=== PATIENT | female | born 1950 | race Caucasian/White ===

== ENCOUNTER → 2017-03-06 | Outpatient (CLI) | payer MEDICARE | END | disposition home or self-care (01) | LOC: CDC 10:15 | DX: M25.562 Pain in left knee (principal); Z96.652 Presence of left artificial knee joint | CPT/HCPCS: 93000 ==

== ENCOUNTER 2018-01-04 22:01 | Inpatient (IN) | payer OTHER, MEDICARE ==
[~2018-01-04] VITALS: Ht 162.6 cm; Wt 74.4 kg
[~2018-01-04 22:01] MED LIST: IRON325 M1 PO; MAGNESIUM400 M1 PO; PRAVACHOL20 MG PO; VITAMIN D-3 401 EACH PO; ZANTAC150 MG PO
[2018-01-05 06:57] VITALS: BP 136/64
[2018-01-05 13:23] VITALS: BP 132/60
[2018-01-05 15:57] VITALS: BP 121/61
[2018-01-05 19:54] VITALS: BP 123/56
[2018-01-06] VITALS (7 sets, daily range): BP systolic 108–135; BP diastolic 55–70
[2018-01-06 05:51] LABS: HEMATOCRIT 36.6 % (36.0-46.0); HEMOGLOBIN 11.8 G/DL (11.9-15.5); MCV 88.6 FL (83-99)
[2018-01-06 06:14] LABS: CHLORIDE 106 MEQ/L (99-109); CREATININE 0.7 MG/DL (0.6-1.3); GFR ESTIMATE (CALCULATED) > 59 mL/min/; GLUCOSE 137 mg/dL (70-99); POTASSIUM 4.5 MEQ/L (3.7-5.4); SODIUM 140 MEQ/L (136-147); UREA NITROGEN (BUN) 11 mg/dL (9-23)
[2018-01-07 04:20] VITALS: BP 96/54
[2018-01-07 06:01] LABS: HEMOGLOBIN 10.9 G/DL (11.9-15.5)
[2018-01-07 08:11] VITALS: BP 134/63
[2018-01-07] MEDS ORDERED: BENADRYL25 MG PO (09:16)
[2018-01-07] MEDS ORDERED: BISACODYL5 MG PO (09:18)
[2018-01-07] MEDS ORDERED: HYDROCODON-ACE1 EAC7 PO (09:19)
[2018-01-07] MEDS ORDERED: CELECOXIB200 MG PO (09:19)
[2018-01-07] MEDS ORDERED: ELIQUIS2.5 MG PO (09:19)
[2018-01-07 12:21] VITALS: BP 133/63
== END 2018-01-07 13:46 | DRG 470 ==
LOC: ENRESERV 22:01 → 2SOUTH 01-05 06:30 → 3WEST 01-05 13:08
PROVIDERS: Orthopaedic Surgery
PROC: 0SRC0J9 Replacement of Right Knee Joint with Synthetic Substitute, Cemented, Open Approach (ICD-10-PCS; principal; 2018-01-05)
DX: M17.11 Unilateral primary osteoarthritis, right knee (principal); E78.00 Pure hypercholesterolemia, unspecified; K21.9 Gastro-esophageal reflux disease without esophagitis; M85.80 Other specified disorders of bone density and structure, unspecified site; J30.9 Allergic rhinitis, unspecified; Z96.652 Presence of left artificial knee joint; E66.3 Overweight; Z68.27 Body mass index [BMI] 27.0-27.9, adult; Z88.0 Allergy status to penicillin
CPT/HCPCS: 80048; 85014; 85018; 97530 GO; C1713; J0690; J1170; J1885; J2250; J2370; J2405; J3010; J7050; J7643